=== PATIENT | male | born 1955 | race Caucasian/White ===

== ENCOUNTER → 2018-04-22 | Outpatient (REF) | payer OTHER ==
[2018-04-23 18:42] LABS: IRON (FE) 19 UG/DL (65-175); PERCENT SATURATION 4.9 % (19.7-50.0); TOTAL IRON BINDING CAPACITY 384 UG/DL (250-450)
[2018-04-23 18:49] LABS: VITAMIN B12 LEVEL 233 PG/ML
[2018-04-23 18:50] LABS: FOLATE 17.2 NG/ML
== END ==
LOC: M LAB REF 17:52
DX: D64.9 Anemia, unspecified (principal)

== ENCOUNTER → 2018-04-30 | Outpatient (REF) | payer OTHER ==
[2018-04-30 12:54] LABS: RETIC HEMOGLOBIN EQUIVALENT 23.7 pg (24-36); RETICULOCYTE # 98.9 10^9/L (17-77); RETICULOCYTE % 2.8 % (0.5-1.5)
== END ==
LOC: M LAB REF 12:13
DX: D64.9 Anemia, unspecified (principal)

== ENCOUNTER → 2018-05-07 | Outpatient (REF) | payer OTHER ==
[2018-05-07 13:50] LABS: RETIC HEMOGLOBIN EQUIVALENT 24.8 pg (24-36); RETICULOCYTE # 116.1 10^9/L (17-77); RETICULOCYTE % 3.1 % (0.5-1.5)
== END ==
LOC: M LAB REF 13:06
DX: D64.9 Anemia, unspecified (principal)
CPT/HCPCS: 85046

== ENCOUNTER → 2018-05-14 | Outpatient (REF) | payer OTHER ==
[2018-05-14 12:35] LABS: RETICULOCYTE # 108.3 10^9/L (17-77); RETICULOCYTE % 2.9 % (0.5-1.5)
== END ==
LOC: M LAB REF 12:02
DX: D64.9 Anemia, unspecified (principal)

== ENCOUNTER → 2018-05-21 | Outpatient (REF) | payer OTHER ==
[2018-05-21 12:23] LABS: RETIC HEMOGLOBIN EQUIVALENT 30.2 pg (24-36); RETICULOCYTE # 96.2 10^9/L (17-77); RETICULOCYTE % 2.3 % (0.5-1.5)
== END ==
LOC: M LAB REF 11:57
DX: D64.9 Anemia, unspecified (principal)
CPT/HCPCS: 85046

== ENCOUNTER → 2018-12-03 | Outpatient (REF) | payer OTHER ==
[~2018-12-03] MED LIST: AMLO5TAB6 PO; FERR325T3 PO; METF750T PO; PANT40TA3 PO; ROSU5TAB4 PO; VALS320T PO
[2018-12-03 12:06] LABS: PERCENT SATURATION 14.6 % (19.7-50.0)
== END ==
LOC: M LAB REF 11:27
PROVIDERS: ATTEND Internal Medicine
DX: D50.9 Iron deficiency anemia, unspecified (principal)

== ENCOUNTER → 2019-06-12 | Outpatient (REF) | payer OTHER ==
[~2019-06-12] MED LIST changes: -ROSU5TAB4 PO; +ROSU5TAB5 PO
== END ==
LOC: M LAB REF 12:46
PROVIDERS: ATTEND Internal Medicine
DX: D50.9 Iron deficiency anemia, unspecified (principal)

== ENCOUNTER → 2020-06-02 | Outpatient (REF) | payer BC ==
[~2020-06-02] MED LIST changes: +AMLO1TAB24 PO; -AMLO5TAB6 PO; -METF750T PO; +METF750T36 PO; +PANT40TA29 PO; -PANT40TA3 PO; -VALS320T PO; +VALS320T2 PO
[2020-06-04 19:09] LABS: Lyme Disease IgG/IgM Antibodie <0.91 ISR (0.00-0.90); Lyme Disease IgM Ab Quantitati <0.80 index (0.00-0.79)
== END ==
LOC: M LAB REF 16:50
PROVIDERS: ATTEND Internal Medicine
DX: M25.50 Pain in unspecified joint (principal)